=== PATIENT | male | born 1965 | race Caucasian/White ===

== ENCOUNTER 2018-03-26 10:29 | Emergency (ER) | payer BC ==
[~2018-03-26] VITALS: Ht 175.3 cm; Wt 88.6 kg
[2018-03-26 10:38] VITALS: BP 126/80; PULSE 84; RESP 18; TEMP 98.6; O2SAT 96
--- NOTE | 2018-03-26 10:53 | PD ---
HPI Chief Complaint: Injury Time Seen by Provider: 10:44 Travel History International Travel<30 days: No Contact w/Intl Traveler<30days: No Traveled to known affect area: No History of Present Illness HPI 52-year-old male presents emergency department for evaluation of right ankle pain that started last night. Says that he was running when he twisted his ankle, describing an inversion injury. Says that the pain is mild in severity, nonradiating, aching. Denies numbness or tingling of the foot or extremity. He has limited range of motion secondary to pain. Says he took ibuprofen 800 mg with some relief of his pain. He has a history of hyperlipidemia and takes medication for this. Denies any other medical issues. [facility] Social History Tobacco Use: No Allergies-Medications (Allergen,Severity, Reaction): Coded Allergies: No Known Allergies (Unverified , 03/26/18) Review of Systems Except as stated in HPI: all other systems reviewed are Neg Physical Exam Narrative GENERAL: Well-nourished, well-developed patient, in NAD SKIN: Focused skin assessment warm/dry. No rashes or lesions. HEAD: Normocephalic. Atraumatic. EYES: No scleral icterus. No injection or drainage. NECK: Supple, trachea midline. No JVD. No meningismus. CARDIOVASCULAR: Regular rate and rhythm without murmurs, gallops, or rubs. RESPIRATORY: Breath sounds equal bilaterally. No accessory muscle use. No wheezes, rales, or rhonchi MUSCULOSKELETAL: No cyanosis, or edema. Right ankle-edematous, tender to palpation lateral malleolus,, limited range of motion of the ankle secondary to pain, neurovascular intact. BACK: Nontender without obvious deformity. No CVA tenderness. Data Data Last Documented VS Vital Signs Date Time Temp Pulse Resp B/P (MAP) Pulse Ox O2 Delivery O2 Flow Rate FiO2 03/26/18 10:59 Room Air 03/26/18 10:38 98.6 84 18 126/80 (95) 96 Orders Orders Ankle, Complete ([id number]) (03/26/18 ) Support Splint (03/26/18 11:32) Crutches (03/26/18 11:32) Ed Discharge Order (03/26/18 11:57) MDM Medical Decision Making Medical Screen Exam Complete: Yes Emergency Medical Condition: Yes Differential Diagnosis Right ankle contusion, bursitis, cellulitis, fracture, osteonecrosis, avascular necrosis, sprain, strain Narrative Course 52-year-old male presents emergency department for evaluation of right ankle pain that started last night. Says that he was running when he twisted his ankle, describing an inversion injury. Says that the pain is mild in severity, nonradiating, aching. Denies numbness or tingling of the foot or extremity. He has limited range of motion secondary to pain. Says he took ibuprofen 800 mg with some relief of his pain. He has a history of hyperlipidemia and takes medication for this. Denies any other medical issues. Vital signs are stable. His exam findings consistent with a right ankle sprain versus fracture. Last Impressions Ankle X-Ray 03/26/18 0000 Signed Impressions: CONCLUSION: 1. Diffuse soft tissue swelling over the lateral malleolus. 2. No acute fracture or joint dislocation. Patient be discharged with an ankle splint and crutches. Weight bearing as tolerated. Tylenol or ibuprofen for pain. Diagnosis Primary Impression: Ankle sprain Qualified Codes: S93.401A - Sprain of unspecified ligament of right ankle, initial encounter Referrals: Orthopedist Hoist Operator Departure Forms: Tests/Procedures Additional Instructions: Use ice or heat for symptom relief. If no contraindications, you may use Tylenol or Motrin per package instructions for your pain. Elevate the joint above the heart to reduce swelling. You may use compression with Gavino wrap or similar to reduce swelling. If symptoms persist or worsen, return to the emergency department. Follow up with your primary care physician within 2 days. Weightbearing as tolerated. Disposition: 01 DISCHARGE HOME Condition: Stable Kalpana Wright March 26, 2018 10:53
--- NOTE | 2018-03-26 11:25 | RADRPT ---
EXAM DATE: 03/26/2018 11:19 AM EDT AGE/SEX: 52 years / Male INDICATIONS: Trauma. Rolled ankle last night. CLINICAL DATA: This is the patient's initial encounter. Patient reports that signs and symptoms have been present for 2 days and indicates a pain score of 6/10. MEDICAL/SURGICAL HISTORY: None. None. COMPARISON: No prior [facility] exams available for comparison. FINDINGS: There is diffuse soft tissue swelling over the lateral malleolus. The bony structures are grossly int act. No acute bony fracture or joint dislocation is demonstrated. No radiopaque foreign bodies are de monstrated. CONCLUSION: 1. Diffuse soft tissue swelling over the lateral malleolus. 2. No acute fracture or joint dislocation. Electronically signed by: Tereso Bragg MD 03/26/2018 11:24 AM EDT
== END 2018-03-26 12:14 | disposition home or self-care (01) ==
LOC: NEPD 10:29
DX: S93.401A Sprain of unspecified ligament of right ankle, initial encounter (principal); X50.1XXA Overexertion from prolonged static or awkward postures, initial encounter; Y93.02 Activity, running
CPT/HCPCS: 73610; 99283; E0113; L1906